=== PATIENT | male | born 1975 | race Hispanic/Latino ===

== ENCOUNTER → 2021-05-31 | Outpatient (CLI) | payer OTHER | END | disposition home or self-care (01) | LOC: OIH 15:23 | PROVIDERS: ATTEND Internal Medicine Cardiovascular Disease | DX: J40 Bronchitis, not specified as acute or chronic (principal) | CPT/HCPCS: 71046 ==

== ENCOUNTER → 2021-05-31 | Outpatient (CLI) | payer OTHER | END | disposition home or self-care (01) | LOC: OIH 15:08 | PROVIDERS: ATTEND Internal Medicine Cardiovascular Disease | DX: Z13.6 Encounter for screening for cardiovascular disorders (principal) | CPT/HCPCS: 75571 ==